=== PATIENT | female | born 1995 | race Caucasian/White ===

== ENCOUNTER 2022-08-27 03:18 | Emergency (ER) | payer OTHER, SELFPAY ==
[2022-08-27] VITALS (8 sets, daily range): BP systolic 90–116; BP diastolic 65–83; PULSE 56–84; RESP 14–18; TEMP 36.4; O2SAT 28–100; BMI 36.3
--- NOTE | 2022-08-27 03:29 | EDS_ITS ---
HPI History of Present Illness HPI Narrative: Patient presents with right elbow pain that began today. Patient states she was closing a door and felt her elbow pop. Patient states her pain is worse with any movement. Patient admits to some tingling in her fingers. Patient denies any weakness. Patient states nothing seems to help with the pain. Patient denies any other injuries. Chief Complaint: Upper Extremity Injury Informant: patient Onset/Context/Timing Onset: Today Context: Sudden Onset Timing: Continuous Quality of Pain: Sharp Location: Right elbow Current Severity: Severe Maximum Severity: Severe Worsened by: Movement Relieved by: Nothing Associated Symptoms Associated Symptoms: Positive for Parasthesia; Negative for Weakness or Loss of Funtion PFSH PFSH Medical History no medical history no medical history Home Medications hydrocodone-acetaminophen 5-325mg 5mg-325mg 1 tab PO Q6H PRN PRN Pain 3 days #10 TABLETS 08/27/22 [Rx Last Taken Unknown] Allergy/AdvReac Type Severity Reaction Status Date / Time No Known Allergies Allergy Verified 08/27/22 03:24 Surgical History no surgical history no surgical history Social History Smoking Status: Never smoker ROS ROS ED Constitutional Constitutional ED: Denies chills or fever(s) Eyes Eyes: Denies blurry vision or change in vision ENT ENT ED: Denies rhinorrhea or sore throat Cardiovascular Cardiovascular: Denies chest pain or palpitations Respiratory/Chest Respiratory/Chest: Denies cough or dyspnea Gastrointestinal Gastrointestinal: Denies nausea or vomiting Genitourinary Genitourinary ED: Denies dysuria or hematuria Musculoskeletal Musculoskeletal: Denies back pain or neck pain Integumentary Denies abscess or rash Neurologic Neurologic: Denies headache(s) or weakness Allergic/Immunologic Allergic/Immunologic ED: Denies mouth swelling or urticaria EXAM Physical Exam Const Vital Signs: 08/27/22 03:19 Temperature 97.5 F L Temperature Source Temporal Pulse Rate 84 Respiratory Rate 18 Blood Pressure 112/75 Blood Pressure Mean 87 Pulse Ox 98 Oxygen Delivery Method Room Air Positive well nourished, well developed and obese General Appearance ED: well developed and NAD Nutritional Appearance: obese HEENT Reports moist mucous membranes Neck full ROM and supple Extremity Extremity Narrative: There is tenderness and deformity over the right clavicle. Range of motion is limited in all motions of the right elbow secondary to pain. Radial pulses are equal bilaterally. Sensation was intact to light touch in the radial, median, and ulnar areas. Strength is 5/5 in the radial, median, and ulnar areas. Neuro oriented x3, CN's II-XII intact bilaterally, moves all extremities, no focal motor deficits and no sensory deficits noted Sensorium / Orientation: alert Motor Exam: strength 5/5 throughout Psych mental status grossly normal MDM MDM MDM Narrative Medical decision making narrative: Differential diagnosis includes elbow fracture, dislocation, and sprain. X-rays of the right elbow will be obtained to assess for fracture and dislocation. Radiography Diagnostic Testing: X-rays of the right elbow were obtained. There are 2 views. On my independent interpretation, there is no acute fracture. There is a dislocation noted. Radiologist also interpreted the x-rays and agrees. Repeat x-rays of the right elbow were obtained. There are 3 views. On my independent interpretation, the dislocation was reduced. There is no acute fracture noted. Radiologist also interpreted the x-rays and agrees. Treatment and Re-Evaluation Narrative: Patient was given IV fluids. Patient was given a dose of morphine here. Jamey saucedo was advised of her findings. Patient was advised of the need for sedation with floor closed reduction. Patient is agreeable with this. Patient was given the opportunity ask questions. Patient had no further questions. Patient was placed on continuous cardiac and pulse oximeter monitors. Patient was given a total of 130 mg of propofol. The dislocation was reduced. Patient tolerated th e procedure well. Patient had a brief hypoxic episode after reduction of the dislocation. A jaw thrust maneuver was performed and oxygen improved. Patient had no complications during the procedure. A well-padded custom made posterior splint was applied using 3 inch Ortho-Glass. Neurovascular exam was intact before and after the procedure. Repeat x-rays will be obtained. Repeat x-rays did not show any new fracture. The dislocation was reduced. Patient was instructed to maintain her splint until rechecked. Patient was given referral for orthopedics. Patient was instructed to return if worse in any way. Patient understood and was agreeable with the plan. All questions were answered. Procedures Upper Extremity Splints Upper Extremity Splint: Orthoglass and - (Posterior splint) Splint Fabrication: Fabricated Location: Right Procedural Sedation 1 (Initial Baseline): Consent Signed: Yes Any Problems With Anesthesia: No You/Your family experience fever (hyperthermia) w/anesthesia: No Sedation medication: Propofol Dose: 130 Route: IV Maliampati Score: Class II ASA Classification: I Discharge Plan Triage Chief Complaint: Upper Extremity Injury ED Provider: Kole Coreas Dx/Rx/DC Orders Clinical Impression: Dislocation of elbow, right, closed Instructions: ED Elbow Dislocation Prescriptions: New hydrocodone-acetaminophen [hydrocodone-acetaminophen] 5-325 mg tablet 1 tab PO Q6H PRN PRN (Reason: Pain) 3 Days Qty: 10 0RF Primary Care Provider: Care Physician,No Primary Referrals: Russell Whitaker MD [Med Staff - Active Staff] - 3-5 Days Care Physician,No Primary [Primary Care Provider] - Disposition Disposition: Home, Self Care
--- NOTE | 2022-08-27 03:34 | RAD_ITS ---
INDICATION: Injury/Pain EXAMINATION/TECHNIQUE: X-RAY - RIGHT XR Elbow 2 Views COMPARISON: None. FINDINGS: SOFT TISSUES: Displacement of the anterior and posterior fat pads. BONES/JOINTS: There is ulnohumeral dislocation with the ulna displaced posterior to the humeral condyles. No significant degenerative changes. No erosive changes. RAD/Elbow 2 Views IMPRESSION: Posterior elbow dislocation and an effusion. No evidence of a fracture. Electronically Signed: Jorge Ochoa DO at 4:06 EDT ,
[2022-08-27] MEDS: Morphine 4 MG/ML Syringe IV (03:45)
[2022-08-27] MEDS: Propofol 200 MG/20 ML Vial IV BOLUS (04:13)
--- NOTE | 2022-08-27 04:26 | RAD_ITS ---
INDICATION: Injury/Pain EXAMINATION/TECHNIQUE: X-RAY - RIGHT XR Elbow 2 Views COMPARISON: None. FINDINGS: SOFT TISSUES: Unremarkable. BONES/JOINTS: No fracture or dislocation. No significant degenerative changes. No erosive changes. RAD/Elbow 2 Views IMPRESSION: Successful reduction of the previously seen dislocation. No evidence of a fracture. Electronically Signed: Jorge Ochoa DO at 4:55 EDT ,
[2022-08-27] MEDS: HYDROcodone Bitartrate/Apap 5/325 Tablet PO (05:18)
== END 2022-08-27 05:23 | disposition home or self-care (01) ==
PROVIDERS: Emergency Provider Emergency Medicine; Visit Provider Emergency Medicine
DX: S53.124A Posterior dislocation of right ulnohumeral joint, initial encounter (principal); X50.9XXA Other and unspecified overexertion or strenuous movements or postures, initial encounter
CPT/HCPCS: 24600; 73070; 96374; 99152; 99285; J7030; A4216